=== PATIENT | male | born 1985 | race Caucasian/White ===

== ENCOUNTER 2021-11-30 11:15 | Emergency (ER) | payer SELFPAY ==
[~2021-11-30] VITALS: Ht 185.4 cm; Wt 90.0 kg
[~2021-11-30 11:15] MED LIST: FLEXERIL5 MG PO; PERCOCET 5/325M1 TAB PO; no home meds
[2021-11-30 11:25] VITALS: BP 122/62
[2021-11-30 12:06] LABS: URINE BILIRUBIN - DIPSTICK NEGATIVE (NEGATIVE); URINE BLOOD DIPSTICK LARGE (NEGATIVE); URINE GLUCOSE - DIPSTICK NEGATIVE (NEGATIVE); URINE KETONE NEGATIVE (NEGATIVE); URINE LEUK ESTERASE NEGATIVE (NEGATIVE); URINE PH 8.5 (4.5-8.0); URINE PROTEIN - DIPSTICK NEGATIVE (NEG-TRACE); URINE UROBILINOGEN - DIPSTICK 0.2 E.U./dL (0.2)
[2021-11-30 12:07] LABS: URINE NITRITE - DIPSTICK NEGATIVE (Negative)
[2021-11-30 12:08] LABS: URINE COLOR DK. YELLOW
[2021-11-30 12:10] LABS: URINE RBC >100 RBC/hpf (0-5)
[2021-11-30 13:57] VITALS: BP 122/62
== END 2021-11-30 13:58 | disposition home or self-care (01) | DRG 696 ==
LOC: ED 11:15
PROVIDERS: Emergency Medicine
DX: R31.9 Hematuria, unspecified (principal); F17.210 Nicotine dependence, cigarettes, uncomplicated

== ENCOUNTER 2022-12-22 20:48 | Emergency (ER) | payer SELFPAY ==
[~2022-12-22] VITALS: Ht 185.4 cm; Wt 65.0 kg
[2022-12-22] MEDS ORDERED: KEFLEX500 MG PO (21:12)
[2022-12-22 22:55] VITALS: BP 115/63
== END 2022-12-22 22:15 | disposition home or self-care (01) | DRG 605 ==
LOC: ED 20:48
DX: S40.211A Abrasion of right shoulder, initial encounter (principal); S00.01XA Abrasion of scalp, initial encounter; S60.811A Abrasion of right wrist, initial encounter; S60.511A Abrasion of right hand, initial encounter; F17.200 Nicotine dependence, unspecified, uncomplicated; V86.59XA Driver of other special all-terrain or other off-road motor vehicle injured in nontraffic accident, initial encounter